=== PATIENT | male | born 1970 | race Caucasian/White ===

== ENCOUNTER 2017-12-24 17:06 | Emergency (ER) | payer MEDICAID ==
[2017-12-24 18:01] LABS: BASOPHILS 1.2 % (0-2); EOSINOPHILS 0.6 % (0-7); HEMATOCRIT 33.4 % (42.0-54.0); HEMOGLOBIN 11.3 g/dL (13.5-17.5); IMMATURE GRANULOCYTES 0.3 % (0-5); LYMPHOCYTES 33.9 % (15-50); MCH 34.3 pg (26.0-34.0); MCHC 33.8 g/dL (31.0-37.0); MCV 101.5 fL (80.0-100.0); MEAN PLATELET VOLUME 9.4 fL (7.4-10.4); MONOCYTES 4.5 % (2-11); NEUTROPHILS 59.5 % (40-80); RBC 3.29 10x6/uL (4.20-6.10); RDW 16.3 % (11.5-14.5); WBC 6.7 10x3/uL (4.8-10.8)
[2017-12-24 18:09] LABS: PLATELET COUNT 300 10x3/uL (130-400)
[2017-12-24 18:15] LABS: ALBUMIN 2.7 g/dL (3.4-5.0); ALKALINE PHOSPHATASE 82 U/L (46-116); ALT (SGPT) 26 U/L (10-68); CALC OSMOLALITY 285 mosm/kg (275-300); CALCIUM 8.5 mg/dL (8.5-10.1); CARBON DIOXIDE 25.8 mmol/L (21.0-32.0); CHLORIDE - SERUM 108 mmol/L (98-107); GLUCOSE 100 mg/dL (74-106); MAGNESIUM - SERUM 1.6 mg/dL (1.8-2.4); POTASSIUM - SERUM 3.8 mmol/L (3.5-5.1); PROTEIN - SERUM 6.7 g/dL (6.4-8.2); SODIUM 145 mmol/L (136-145); UREA NITROGEN 3 mg/dL (7-18); eGFR NON AFRICAN AMERICAN 85 mL/min (90-120)
== END 2017-12-25 01:05 | disposition home or self-care (01) ==
LOC: D.ER 17:06
PROVIDERS: Emergency Medicine
DX: F10.129 Alcohol abuse with intoxication, unspecified (principal); F10.10 Alcohol abuse, uncomplicated; Z85.038 Personal history of other malignant neoplasm of large intestine; F17.200 Nicotine dependence, unspecified, uncomplicated

== ENCOUNTER 2018-01-13 23:54 | Emergency (ER) | payer MEDICAID ==
[2018-01-14 00:32] LABS: BASOPHILS 0.5 % (0-2); EOSINOPHILS 0 % (0-7); HEMATOCRIT 38.2 % (42.0-54.0); HEMOGLOBIN 13.3 g/dL (13.5-17.5); LYMPHOCYTES 45.7 % (15-50); MCH 34.5 pg (26.0-34.0); MCHC 34.8 g/dL (31.0-37.0); MEAN PLATELET VOLUME 9.5 fL (7.4-10.4); MONOCYTES 7.2 % (2-11); NEUTROPHILS 46.6 % (40-80); RBC 3.86 10x6/uL (4.20-6.10); RDW 16.2 % (11.5-14.5); WBC 3.7 10x3/uL (4.8-10.8)
[2018-01-14 00:36] LABS: PLATELET COUNT 54 10x3/uL (130-400)
[2018-01-14 00:41] LABS: INR 1.08 (0.85-1.17); PROTIME 13.6 SECONDS (11.6-15.0)
[2018-01-14 00:43] LABS: ALBUMIN 3.2 g/dL (3.4-5.0); ALKALINE PHOSPHATASE 113 U/L (46-116); ALT (SGPT) 46 U/L (10-68); CALC OSMOLALITY 277 mosm/kg (275-300); CALCIUM 8.3 mg/dL (8.5-10.1); CARBON DIOXIDE 27.7 mmol/L (21.0-32.0); CHLORIDE - SERUM 98 mmol/L (98-107); CREATININE - SERUM 0.6 mg/dL (0.6-1.3); GLUCOSE 100 mg/dL (74-106); MAGNESIUM - SERUM 1.4 mg/dL (1.8-2.4); POTASSIUM - SERUM 4.3 mmol/L (3.5-5.1); PROTEIN - SERUM 7.4 g/dL (6.4-8.2); SODIUM 139 mmol/L (136-145); UREA NITROGEN 13 mg/dL (7-18); eGFR NON AFRICAN AMERICAN > 90 mL/min (90-120)
[2018-01-14 01:00] LABS: PLATELET ESTIMATE DECREASED
== END 2018-01-14 14:04 | disposition home or self-care (01) ==
LOC: D.ER 23:54
PROVIDERS: Family Medicine; Physician Assistant Medical
DX: F10.10 Alcohol abuse, uncomplicated (principal); F10.129 Alcohol abuse with intoxication, unspecified; F41.9 Anxiety disorder, unspecified; F17.200 Nicotine dependence, unspecified, uncomplicated

== ENCOUNTER 2018-01-29 19:27 | Inpatient (IN) | payer MEDICAID ==
[2018-01-29 19:56] LABS: PROTIME 12.8 SECONDS (11.6-15.0)
[2018-01-29 19:57] LABS: HEMATOCRIT 38.1 % (42.0-54.0); HEMOGLOBIN 13.4 g/dL (13.5-17.5); MCH 34.8 pg (26.0-34.0); MCHC 35.2 g/dL (31.0-37.0); MEAN PLATELET VOLUME 9.8 fL (7.4-10.4); RBC 3.85 10x6/uL (4.20-6.10); RDW 15.7 % (11.5-14.5); WBC 5.9 10x3/uL (4.8-10.8)
[2018-01-29 19:58] LABS: D-DIMER-QUANTITATIVE 1.9 ug/mLFEU (0.20-0.54)
[2018-01-29 20:04] LABS: MAGNESIUM - SERUM 1.8 mg/dL (1.8-2.4)
[2018-01-29 20:09] LABS: ALKALINE PHOSPHATASE 95 U/L (46-116); ALT (SGPT) 63 U/L (10-68); BILIRUBIN - TOTAL 0.16 mg/dL (0.2-1.3); CALC OSMOLALITY 277 mosm/kg (275-300); CALCIUM 8.3 mg/dL (8.5-10.1); CARBON DIOXIDE 28.1 mmol/L (21.0-32.0); CHLORIDE - SERUM 104 mmol/L (98-107); CREATININE - SERUM 0.5 mg/dL (0.6-1.3); GLUCOSE 81 mg/dL (74-106); POTASSIUM - SERUM 4.4 mmol/L (3.5-5.1); PROTEIN - SERUM 6.8 g/dL (6.4-8.2); SODIUM 141 mmol/L (136-145); UREA NITROGEN 8 mg/dL (7-18); eGFR NON AFRICAN AMERICAN > 90 mL/min (90-120)
[2018-01-29 20:25] LABS: CKMB 0.3 U/L (0.0-3.6); CREATINE KINASE 36 UL (21-232); PLATELET COUNT 168 10x3/uL (130-400)
[2018-01-29 20:28] LABS: TROPONIN-I < 0.017 ng/mL (0.000-0.060)
[2018-01-29 21:03] LABS: CHOL - HDL RATIO 3.6 ratio (2.3-4.9); LDL-HDL RATIO 2.1 ratio (1.5-3.5)
[2018-01-29 21:11] LABS: EOSINOPHILS 5 % (0-7); LYMPHOCYTES 52 % (15-50); MONOCYTES 7 % (2-11); NEUTROPHILS 36 % (40-80); PLATELET ESTIMATE NORMAL
[2018-01-30 00:58] LABS: CREATINE KINASE 23 UL (21-232)
[2018-01-30 01:00] LABS: CKMB 0.5 U/L (0.0-3.6); TROPONIN-I < 0.017 ng/mL (0.000-0.060)
[2018-01-30 06:15] LABS: BASOPHILS 2.3 % (0-2); EOSINOPHILS 0.5 % (0-7); HEMATOCRIT 35.9 % (42.0-54.0); HEMOGLOBIN 12.5 g/dL (13.5-17.5); IMMATURE GRANULOCYTES 0.3 % (0-5); LYMPHOCYTES 40.7 % (15-50); MCH 34.4 pg (26.0-34.0); MCHC 34.8 g/dL (31.0-37.0); MCV 98.9 fL (80.0-100.0); MEAN PLATELET VOLUME 9.1 fL (7.4-10.4); MONOCYTES 10.3 % (2-11); NEUTROPHILS 45.9 % (40-80); RBC 3.63 10x6/uL (4.20-6.10); RDW 15.8 % (11.5-14.5)
[2018-01-30 06:17] LABS: PLATELET COUNT 132 10x3/uL (130-400)
[2018-01-30 07:08] LABS: ALBUMIN 2.9 g/dL (3.4-5.0); ALKALINE PHOSPHATASE 88 U/L (46-116); ALT (SGPT) 57 U/L (10-68); BILIRUBIN - TOTAL 0.36 mg/dL (0.2-1.3); CALC OSMOLALITY 271 mosm/kg (275-300); CALCIUM 8.2 mg/dL (8.5-10.1); CARBON DIOXIDE 24.1 mmol/L (21.0-32.0); CHLORIDE - SERUM 104 mmol/L (98-107); CREATINE KINASE 29 UL (21-232); CREATININE - SERUM 0.4 mg/dL (0.6-1.3); GLUCOSE 77 mg/dL (74-106); POTASSIUM - SERUM 3.9 mmol/L (3.5-5.1); PROTEIN - SERUM 6.8 g/dL (6.4-8.2); SODIUM 138 mmol/L (136-145); TROPONIN-I < 0.017 ng/mL (0.000-0.060); UREA NITROGEN 5 mg/dL (7-18); eGFR NON AFRICAN AMERICAN > 90 mL/min (90-120)
[2018-01-30 07:32] LABS: CKMB 0.2 U/L (0.0-3.6)
[2018-01-30 12:09] VITALS: BP 140/96; BMI 24.0
[2018-01-30] MEDS ORDERED: PHENERGAN25 M1 PO (12:09)
[2018-01-30 12:47] LABS: CKMB 0.5 U/L (0.0-3.6); CREATINE KINASE 39 UL (21-232)
[2018-01-30 12:50] LABS: TROPONIN-I < 0.017 ng/mL (0.000-0.060)
[2018-01-30 16:22] VITALS: BP 136/89
[2018-01-30 22:13] VITALS: BP 128/89
[2018-01-31 01:16] VITALS: BP 124/81
[2018-01-31 04:40] LABS: BASOPHILS 0.9 % (0-2); EOSINOPHILS 0.3 % (0-7); HEMATOCRIT 34.9 % (42.0-54.0); IMMATURE GRANULOCYTES 0.3 % (0-5); LYMPHOCYTES 35.6 % (15-50); MCH 34.2 pg (26.0-34.0); MCHC 34.4 g/dL (31.0-37.0); MCV 99.4 fL (80.0-100.0); MEAN PLATELET VOLUME 9.3 fL (7.4-10.4); MONOCYTES 10.9 % (2-11); PLATELET COUNT 134 10x3/uL (130-400); RBC 3.51 10x6/uL (4.20-6.10); RDW 15.2 % (11.5-14.5); WBC 3.4 10x3/uL (4.8-10.8)
[2018-01-31 04:47] LABS: CALC OSMOLALITY 265 mosm/kg (275-300); CALCIUM 8.9 mg/dL (8.5-10.1); CARBON DIOXIDE 25.2 mmol/L (21.0-32.0); CHLORIDE - SERUM 101 mmol/L (98-107); CREATININE - SERUM 0.5 mg/dL (0.6-1.3); GLUCOSE 88 mg/dL (74-106); POTASSIUM - SERUM 3.5 mmol/L (3.5-5.1); SODIUM 135 mmol/L (136-145); UREA NITROGEN 5 mg/dL (7-18); eGFR NON AFRICAN AMERICAN > 90 mL/min (90-120)
[2018-01-31 05:14] VITALS: BP 118/90
[2018-01-31 08:19] VITALS: BP 133/92
[2018-01-31] MEDS ORDERED: LIBRIUM25 MG PO (12:03)
[2018-01-31 12:34] VITALS: BP 119/94
== END 2018-01-31 14:37 | disposition home health service (06) | DRG 897 ==
LOC: D.ER 19:27 → D.EDHOLD 23:52 → D.MS 23:52
PROVIDERS: Family Medicine; Internal Medicine Nephrology
DX: F10.129 Alcohol abuse with intoxication, unspecified (principal); Y90.8 Blood alcohol level of 240 mg/100 ml or more; R07.9 Chest pain, unspecified; R19.09 Other intra-abdominal and pelvic swelling, mass and lump

== ENCOUNTER 2018-02-15 03:18 | Emergency (ER) | payer MEDICAID ==
[~2018-02-15 03:18] MED LIST: LIBRIUM25 MG PO; PHENERGAN25 M1 PO
[2018-02-15 04:31] LABS: APPEARANCE CLEAR (CLEAR); BILIRUBIN NEGATIVE (NEGATIVE); COLOR YELLOW (YELLOW); GLUCOSE NEGATIVE (NEGATIVE); KETONE SMALL mg/dL (NEGATIVE); NITRITE NEGATIVE (NEGATIVE); PROTEIN NEGATIVE (NEGATIVE); SPECIFIC GRAVITY 1.015 (1.005-1.020); UROBILINOGEN NORMAL (NORMAL)
[2018-02-15 04:32] LABS: BASOPHILS 0.9 % (0-2); EOSINOPHILS 0.4 % (0-7); HEMATOCRIT 37.2 % (42.0-54.0); HEMOGLOBIN 13.2 g/dL (13.5-17.5); IMMATURE GRANULOCYTES 0.4 % (0-5); LYMPHOCYTES 47.6 % (15-50); MCH 35.6 pg (26.0-34.0); MCHC 35.5 g/dL (31.0-37.0); MCV 100.3 fL (80.0-100.0); MEAN PLATELET VOLUME 8.9 fL (7.4-10.4); MONOCYTES 7.6 % (2-11); NEUTROPHILS 43.1 % (40-80); PLATELET COUNT 101 10x3/uL (130-400); RBC 3.71 10x6/uL (4.20-6.10); RDW 16.2 % (11.5-14.5); WBC 5.4 10x3/uL (4.8-10.8)
[2018-02-15 04:44] LABS: ALBUMIN 3.2 g/dL (3.4-5.0); ALKALINE PHOSPHATASE 139 U/L (46-116); ALT (SGPT) 47 U/L (10-68); BILIRUBIN - TOTAL 0.35 mg/dL (0.2-1.3); CALC OSMOLALITY 273 mosm/kg (275-300); CALCIUM 8.3 mg/dL (8.5-10.1); CARBON DIOXIDE 29.4 mmol/L (21.0-32.0); CHLORIDE - SERUM 100 mmol/L (98-107); CREATININE - SERUM 0.6 mg/dL (0.6-1.3); GLUCOSE 103 mg/dL (74-106); POTASSIUM - SERUM 4.1 mmol/L (3.5-5.1); PROTEIN - SERUM 7.5 g/dL (6.4-8.2); SODIUM 138 mmol/L (136-145); UREA NITROGEN 8 mg/dL (7-18); eGFR NON AFRICAN AMERICAN > 90 mL/min (90-120)
== END 2018-02-15 08:39 | disposition home or self-care (01) ==
LOC: D.ER 03:18
PROVIDERS: Family Medicine
DX: K59.00 Constipation, unspecified (principal); R33.9 Retention of urine, unspecified; F10.10 Alcohol abuse, uncomplicated

== ENCOUNTER 2018-03-17 21:36 | Emergency (ER) | payer MEDICAID ==
[2018-03-17 22:54] LABS: UDS - AMPHET NEGATIVE QUAL (NEGATIVE); UDS - BARB NEGATIVE QUAL (NEGATIVE); UDS - BENZO NEGATIVE QUAL (NEGATIVE); UDS - COCAINE NEGATIVE QUAL (NEGATIVE); UDS - OPIATE NEGATIVE QUAL (NEGATIVE); UDS - PCP NEGATIVE QUAL (NEGATIVE); UDS - THC NEGATIVE QUAL (NEGATIVE)
[2018-03-18 00:02] LABS: HEMOGLOBIN 12.2 g/dL (13.5-17.5); LYMPHOCYTES 37.2 % (15-50); MCH 35.4 pg (26.0-34.0); MCHC 34.9 g/dL (31.0-37.0); MCV 101.4 fL (80.0-100.0); MEAN PLATELET VOLUME 8.9 fL (7.4-10.4); PLATELET COUNT 209 10x3/uL (130-400); RBC 3.45 10x6/uL (4.20-6.10); RDW 16.4 % (11.5-14.5); WBC 4.8 10x3/uL (4.8-10.8)
[2018-03-18 00:10] LABS: ALBUMIN 2.9 g/dL (3.4-5.0); ALKALINE PHOSPHATASE 131 U/L (46-116); ALT (SGPT) 41 U/L (10-68); BILIRUBIN - TOTAL 0.31 mg/dL (0.2-1.3); CALC OSMOLALITY 280 mosm/kg (275-300); CALCIUM 8.1 mg/dL (8.5-10.1); CARBON DIOXIDE 25.2 mmol/L (21.0-32.0); CHLORIDE - SERUM 103 mmol/L (98-107); CREATININE - SERUM 0.5 mg/dL (0.6-1.3); GLUCOSE 98 mg/dL (74-106); MAGNESIUM - SERUM 1.6 mg/dL (1.8-2.4); POTASSIUM - SERUM 4.1 mmol/L (3.5-5.1); PROTEIN - SERUM 7.3 g/dL (6.4-8.2); SODIUM 142 mmol/L (136-145); UREA NITROGEN 8 mg/dL (7-18); eGFR NON AFRICAN AMERICAN > 90 mL/min (90-120)
== END 2018-03-18 05:46 | disposition home or self-care (01) ==
LOC: D.ER 21:36
PROVIDERS: Family Medicine; Physician Assistant Medical
DX: S22.42XA Multiple fractures of ribs, left side, initial encounter for closed fracture (principal); S27.9XXA Injury of unspecified intrathoracic organ, initial encounter; W01.0XXA Fall on same level from slipping, tripping and stumbling without subsequent striking against object, initial encounter; Y93.89 Activity, other specified; Y92.019 Unspecified place in single-family (private) house as the place of occurrence of the external cause; F17.200 Nicotine dependence, unspecified, uncomplicated

== ENCOUNTER 2018-04-06 19:21 | Emergency (ER) | payer MEDICAID | END 2018-04-06 21:08 | disposition home or self-care (01) | LOC: D.ER 19:21 | DX: F10.129 Alcohol abuse with intoxication, unspecified (principal); S80.02XA Contusion of left knee, initial encounter; S20.212A Contusion of left front wall of thorax, initial encounter; W18.31XA Fall on same level due to stepping on an object, initial encounter; Y93.89 Activity, other specified; Y92.019 Unspecified place in single-family (private) house as the place of occurrence of the external cause; F17.200 Nicotine dependence, unspecified, uncomplicated ==

== ENCOUNTER 2018-04-17 17:58 | Emergency (ER) | payer MEDICAID ==
[2018-04-17 18:43] LABS: BASOPHILS 0.4 % (0-2); EOSINOPHILS 0.4 % (0-7); HEMATOCRIT 38.3 % (42.0-54.0); HEMOGLOBIN 13.4 g/dL (13.5-17.5); IMMATURE GRANULOCYTES 0.2 % (0-5); LYMPHOCYTES 35.1 % (15-50); MCH 36.3 pg (26.0-34.0); MCV 103.8 fL (80.0-100.0); MEAN PLATELET VOLUME 9.9 fL (7.4-10.4); MONOCYTES 7.3 % (2-11); NEUTROPHILS 56.6 % (40-80); RBC 3.69 10x6/uL (4.20-6.10); RDW 14.7 % (11.5-14.5); WBC 5.3 10x3/uL (4.8-10.8)
[2018-04-17 18:45] LABS: PLATELET COUNT 102 10x3/uL (130-400)
[2018-04-17 18:55] LABS: ALBUMIN 3.4 g/dL (3.4-5.0); ALKALINE PHOSPHATASE 122 U/L (46-116); ALT (SGPT) 70 U/L (10-68); BILIRUBIN - TOTAL 0.51 mg/dL (0.2-1.3); CALC OSMOLALITY 286 mosm/kg (275-300); CALCIUM 8.5 mg/dL (8.5-10.1); CARBON DIOXIDE 24.6 mmol/L (21.0-32.0); CHLORIDE - SERUM 106 mmol/L (98-107); CREATININE - SERUM 0.5 mg/dL (0.6-1.3); GLUCOSE 92 mg/dL (74-106); PROTEIN - SERUM 7.6 g/dL (6.4-8.2); SODIUM 144 mmol/L (136-145); UREA NITROGEN 13 mg/dL (7-18); eGFR NON AFRICAN AMERICAN > 90 mL/min (90-120)
[2018-04-17 19:18] LABS: APPEARANCE CLEAR (CLEAR); BILIRUBIN NEGATIVE (NEGATIVE); COLOR AMBER (YELLOW); GLUCOSE NEGATIVE (NEGATIVE); KETONE NEGATIVE (NEGATIVE); NITRITE NEGATIVE (NEGATIVE); PROTEIN TRACE mg/dL (NEGATIVE); SPECIFIC GRAVITY 1.015 (1.005-1.020)
[2018-04-17 19:19] LABS: WHITE CELLS - URINE OCC /hpf (0-5)
[2018-04-17 19:20] LABS: BACTERIA FEW /hpf (NONE SEEN); MUCUS <1+ /lpf (NONE SEEN)
[2018-04-17 19:21] LABS: UDS - AMPHET NEGATIVE QUAL (NEGATIVE); UDS - BARB NEGATIVE QUAL (NEGATIVE); UDS - BENZO NEGATIVE QUAL (NEGATIVE); UDS - COCAINE NEGATIVE QUAL (NEGATIVE); UDS - OPIATE NEGATIVE QUAL (NEGATIVE); UDS - PCP NEGATIVE QUAL (NEGATIVE); UDS - THC NEGATIVE QUAL (NEGATIVE)
== END 2018-04-18 01:56 | disposition home or self-care (01) ==
LOC: D.ER 17:58
PROVIDERS: Emergency Medicine
DX: F41.9 Anxiety disorder, unspecified (principal); F10.129 Alcohol abuse with intoxication, unspecified; F17.200 Nicotine dependence, unspecified, uncomplicated

== ENCOUNTER 2018-05-25 19:01 | Emergency (ER) | payer MEDICAID ==
[~2018-05-25] VITALS: Ht 190.5 cm; Wt 87.3 kg
[2018-05-25 19:06] VITALS: Ht 190.5 cm; Wt 87.3 kg
[2018-05-25 19:29] LABS: BASOPHILS 0.4 % (0-2); EOSINOPHILS 0.4 % (0-7); HEMATOCRIT 36.6 % (42.0-54.0); HEMOGLOBIN 12.6 g/dL (13.5-17.5); LYMPHOCYTES 33.3 % (15-50); MCH 35.9 pg (26.0-34.0); MCHC 34.4 g/dL (31.0-37.0); MCV 104.3 fL (80.0-100.0); MEAN PLATELET VOLUME 10.2 fL (7.4-10.4); NEUTROPHILS 58.9 % (40-80); RBC 3.51 10x6/uL (4.20-6.10); RDW 13.6 % (11.5-14.5); WBC 5.2 10x3/uL (4.8-10.8)
[2018-05-25 19:52] LABS: ALKALINE PHOSPHATASE 162 U/L (46-116); ALT (SGPT) 54 U/L (10-68); CALC OSMOLALITY 286 mosm/kg (275-300); CARBON DIOXIDE 25.4 mmol/L (21.0-32.0); CHLORIDE - SERUM 106 mmol/L (98-107); CREATININE - SERUM 0.6 mg/dL (0.6-1.3); GLUCOSE 125 mg/dL (74-106); PROTEIN - SERUM 6.9 g/dL (6.4-8.2); SODIUM 144 mmol/L (136-145); UREA NITROGEN 11 mg/dL (7-18); eGFR NON AFRICAN AMERICAN > 90 mL/min (90-120)
[2018-05-25 20:05] LABS: POTASSIUM - SERUM 2.9 mmol/L (3.5-5.1)
[2018-05-25 20:08] LABS: PLATELET COUNT 66 10x3/uL (130-400)
[2018-05-25 20:32] LABS: PLATELET ESTIMATE DECREASED
[2018-05-25 21:26] LABS: APPEARANCE CLEAR (CLEAR); BILIRUBIN 1+ (NEGATIVE); COLOR DK YELLOW (YELLOW); GLUCOSE NEGATIVE (NEGATIVE); KETONE NEGATIVE (NEGATIVE); NITRITE NEGATIVE (NEGATIVE); PROTEIN NEGATIVE (NEGATIVE)
[2018-05-25 21:27] LABS: WHITE CELLS - URINE 0-5 /hpf (0-5)
[2018-05-25 21:28] LABS: AMORPHOUS SEDIMENT <1+ /lpf (NONE SEEN); BACTERIA FEW /hpf (NONE SEEN); EPITHELIAL CELLS 0-5 /hpf (0-5); MUCUS >1+ /lpf (NONE SEEN)
[2018-05-25 23:03] LABS: UDS - AMPHET NEGATIVE QUAL (NEGATIVE); UDS - BARB NEGATIVE QUAL (NEGATIVE); UDS - BENZO NEGATIVE QUAL (NEGATIVE); UDS - COCAINE NEGATIVE QUAL (NEGATIVE); UDS - OPIATE NEGATIVE QUAL (NEGATIVE); UDS - PCP NEGATIVE QUAL (NEGATIVE); UDS - THC NEGATIVE QUAL (NEGATIVE)
[2018-05-26 06:00] VITALS: BP 136/78
== END 2018-05-26 06:00 | disposition home or self-care (01) ==
LOC: D.ER 19:01
PROVIDERS: Emergency Medicine
DX: F10.10 Alcohol abuse, uncomplicated (principal)

== ENCOUNTER 2018-06-18 10:05 | Emergency (ER) | payer MEDICAID ==
[~2018-06-18] VITALS: Ht 190.5 cm; Wt 81.6 kg
[2018-06-18 10:07] VITALS: Ht 190.5 cm; Wt 81.6 kg
[2018-06-18 12:02] LABS: BASOPHILS 0.2 % (0-2); EOSINOPHILS 0 % (0-7); HEMATOCRIT 32.3 % (42.0-54.0); HEMOGLOBIN 11.4 g/dL (13.5-17.5); LYMPHOCYTES 10.4 % (15-50); MCH 34.9 pg (26.0-34.0); MCHC 35.3 g/dL (31.0-37.0); MCV 98.8 fL (80.0-100.0); MEAN PLATELET VOLUME 10.7 fL (7.4-10.4); NEUTROPHILS 78.4 % (40-80); RBC 3.27 10x6/uL (4.20-6.10); RDW 13.4 % (11.5-14.5); WBC 5.1 10x3/uL (4.8-10.8)
[2018-06-18 12:13] LABS: PLATELET COUNT 49 10x3/uL (130-400)
[2018-06-18 12:26] LABS: ALBUMIN 3.2 g/dL (3.4-5.0); ALKALINE PHOSPHATASE 133 U/L (46-116); ALT (SGPT) 31 U/L (10-68); BILIRUBIN - TOTAL 1.46 mg/dL (0.2-1.3); CALC OSMOLALITY 277 mosm/kg (275-300); CALCIUM 8.1 mg/dL (8.5-10.1); CARBON DIOXIDE 26.9 mmol/L (21.0-32.0); CHLORIDE - SERUM 97 mmol/L (98-107); CREATININE - SERUM 0.6 mg/dL (0.6-1.3); POTASSIUM - SERUM 3.2 mmol/L (3.5-5.1); PROTEIN - SERUM 7.1 g/dL (6.4-8.2); SODIUM 139 mmol/L (136-145); UREA NITROGEN 15 mg/dL (7-18); eGFR NON AFRICAN AMERICAN > 90 mL/min (90-120)
[2018-06-18 12:32] LABS: GLUCOSE 76 mg/dL (74-106)
[2018-06-18 15:01] VITALS: BP 126/78
== END 2018-06-18 15:01 | disposition home or self-care (01) ==
LOC: D.ER 10:05
PROVIDERS: Emergency Medicine
DX: F10.10 Alcohol abuse, uncomplicated (principal); F41.9 Anxiety disorder, unspecified; R11.0 Nausea; F17.200 Nicotine dependence, unspecified, uncomplicated

== ENCOUNTER 2018-07-07 20:42 | Inpatient (IN) | payer MEDICAID ==
[~2018-07-07] VITALS: Ht 190.5 cm; Wt 79.0 kg
[2018-07-07 21:24] LABS: HEMATOCRIT 22.6 % (42.0-54.0); HEMOGLOBIN 7.9 g/dL (13.5-17.5); IMMATURE GRANULOCYTES 0.5 % (0-5); LYMPHOCYTES 33.3 % (15-50); MCH 33.8 pg (26.0-34.0); MCV 96.6 fL (80.0-100.0); MEAN PLATELET VOLUME 8.6 fL (7.4-10.4); MONOCYTES 7.5 % (2-11); NEUTROPHILS 56.7 % (40-80); RBC 2.34 10x6/uL (4.20-6.10)
[2018-07-07 21:25] LABS: PLATELET COUNT 266 10x3/uL (130-400)
[2018-07-07 21:36] LABS: APTT 31.2 SECONDS (22.8-39.4); INR 1.06 (0.85-1.17); PROTIME 13.4 SECONDS (11.6-15.0)
[2018-07-07 21:38] LABS: D-DIMER-QUANTITATIVE 2.5 ug/mLFEU (0.20-0.54)
[2018-07-07 22:03] LABS: ALBUMIN 2.3 g/dL (3.4-5.0); ALKALINE PHOSPHATASE 192 U/L (46-116); ALT (SGPT) 41 U/L (10-68); BILIRUBIN - TOTAL 0.19 mg/dL (0.2-1.3); CALCIUM 7.8 mg/dL (8.5-10.1); CARBON DIOXIDE 28.1 mmol/L (21.0-32.0); CHLORIDE - SERUM 106 mmol/L (98-107); CKMB 0.7 U/L (0.0-3.6); CREATINE KINASE 36 UL (21-232); CREATININE - SERUM 0.7 mg/dL (0.6-1.3); PRO BNP 166 pg/mL (0-125); SODIUM 147 mmol/L (136-145); UREA NITROGEN 9 mg/dL (7-18); eGFR NON AFRICAN AMERICAN > 90 mL/min (90-120)
[2018-07-07 22:08] LABS: CALC OSMOLALITY 294 mosm/kg (275-300); GLUCOSE 163 mg/dL (74-106); TROPONIN-I < 0.017 ng/mL (0.000-0.060)
[2018-07-07 22:09] LABS: POTASSIUM - SERUM 2.5 mmol/L (3.5-5.1)
[2018-07-08] VITALS (25 sets, daily range): BP systolic 100–147; BP diastolic 81–119; BMI 22.0
[2018-07-08 06:19] LABS: BASOPHILS 0.4 % (0-2); EOSINOPHILS 1.1 % (0-7); HEMATOCRIT 23.5 % (42.0-54.0); HEMOGLOBIN 8.2 g/dL (13.5-17.5); IMMATURE GRANULOCYTES 0.4 % (0-5); MCH 32.7 pg (26.0-34.0); MCHC 34.9 g/dL (31.0-37.0); MEAN PLATELET VOLUME 8.5 fL (7.4-10.4); MONOCYTES 7.8 % (2-11); NEUTROPHILS 63.3 % (40-80); PLATELET COUNT 242 10x3/uL (130-400); RBC 2.51 10x6/uL (4.20-6.10); RDW 15.4 % (11.5-14.5); WBC 5.3 10x3/uL (4.8-10.8)
[2018-07-08 06:20] LABS: MCV 93.6 fL (80.0-100.0)
[2018-07-08 06:39] LABS: ALBUMIN 2.4 g/dL (3.4-5.0); ALKALINE PHOSPHATASE 151 U/L (46-116); ALT (SGPT) 47 U/L (10-68); BILIRUBIN - TOTAL 0.36 mg/dL (0.2-1.3); CALC OSMOLALITY 280 mosm/kg (275-300); CARBON DIOXIDE 28.4 mmol/L (21.0-32.0); CHLORIDE - SERUM 103 mmol/L (98-107); GLUCOSE 99 mg/dL (74-106); PROTEIN - SERUM 5.7 g/dL (6.4-8.2); SODIUM 142 mmol/L (136-145); UREA NITROGEN 6 mg/dL (7-18)
[2018-07-08 06:40] LABS: CREATININE - SERUM 0.4 mg/dL (0.6-1.3); POTASSIUM - SERUM 3.1 mmol/L (3.5-5.1); eGFR NON AFRICAN AMERICAN > 90 mL/min (90-120)
[2018-07-08 07:40] LABS: AMYLASE - SERUM 93 U/L (25-115); LIPASE 320 U/L (73-393)
[2018-07-08 12:14] LABS: HEMATOCRIT 27.2 % (42.0-54.0); HEMOGLOBIN 9.6 g/dL (13.5-17.5)
[2018-07-08 18:40] LABS: HEMATOCRIT 27.9 % (42.0-54.0); HEMOGLOBIN 9.8 g/dL (13.5-17.5)
[2018-07-09] VITALS (11 sets, daily range): BP systolic 113–149; BP diastolic 70–113; Ht 190.5 cm; Wt 79.0 kg
[2018-07-09 05:18] LABS: BASOPHILS 0.3 % (0-2); EOSINOPHILS 0.8 % (0-7); HEMATOCRIT 27.3 % (42.0-54.0); HEMOGLOBIN 9.6 g/dL (13.5-17.5); IMMATURE GRANULOCYTES 0.2 % (0-5); LYMPHOCYTES 19.3 % (15-50); MCH 32.8 pg (26.0-34.0); MCHC 35.2 g/dL (31.0-37.0); MCV 93.2 fL (80.0-100.0); MEAN PLATELET VOLUME 8.8 fL (7.4-10.4); MONOCYTES 5.8 % (2-11); NEUTROPHILS 73.6 % (40-80); PLATELET COUNT 213 10x3/uL (130-400); RBC 2.93 10x6/uL (4.20-6.10); RDW 16.6 % (11.5-14.5)
[2018-07-09 05:56] LABS: ALBUMIN 2.5 g/dL (3.4-5.0); ALKALINE PHOSPHATASE 139 U/L (46-116); ALT (SGPT) 40 U/L (10-68); BILIRUBIN - TOTAL 0.65 mg/dL (0.2-1.3); CARBON DIOXIDE 26.6 mmol/L (21.0-32.0); CHLORIDE - SERUM 100 mmol/L (98-107); CREATININE - SERUM 0.5 mg/dL (0.6-1.3); GLUCOSE 91 mg/dL (74-106); POTASSIUM - SERUM 3.7 mmol/L (3.5-5.1); PROTEIN - SERUM 6.1 g/dL (6.4-8.2); SODIUM 135 mmol/L (136-145); eGFR NON AFRICAN AMERICAN > 90 mL/min (90-120)
[2018-07-09 06:00] LABS: CALC OSMOLALITY 266 mosm/kg (275-300); UREA NITROGEN 3 mg/dL (7-18)
[2018-07-09 06:01] LABS: CALCIUM 6.9 mg/dL (8.5-10.1)
== END 2018-07-09 11:33 | disposition left against medical advice (07) | DRG 380 ==
LOC: D.ER 20:42 → D.EDHOLD 07-08 01:49 → D.ICU 07-08 15:31
PROVIDERS: Family Medicine; Family Medicine Adult Medicine; Internal Medicine Gastroenterology
PROC: 0DB78ZX Excision of Stomach, Pylorus, Via Natural or Artificial Opening Endoscopic, Diagnostic (ICD-10-PCS; principal; 2018-07-08 14:00)
DX: K22.11 Ulcer of esophagus with bleeding (principal); J18.9 Pneumonia, unspecified organism; F17.203 Nicotine dependence unspecified, with withdrawal; K86.1 Other chronic pancreatitis; K92.2 Gastrointestinal hemorrhage, unspecified; D50.0 Iron deficiency anemia secondary to blood loss (chronic); K44.9 Diaphragmatic hernia without obstruction or gangrene; I10 Essential (primary) hypertension; J44.9 Chronic obstructive pulmonary disease, unspecified; F10.20 Alcohol dependence, uncomplicated; E87.6 Hypokalemia; Z85.038 Personal history of other malignant neoplasm of large intestine

== ENCOUNTER 2018-07-13 02:30 | Emergency (ER) | payer MEDICAID ==
[~2018-07-13] VITALS: Ht 190.5 cm; Wt 127.3 kg
[2018-07-13 02:37] VITALS: Ht 190.5 cm; Wt 127.3 kg
[2018-07-13 03:11] VITALS: BP 105/79
== END 2018-07-13 03:11 | disposition home or self-care (01) ==
LOC: D.ER 02:30
DX: R60.0 Localized edema (principal); M79.672 Pain in left foot; M79.671 Pain in right foot; G40.909 Epilepsy, unspecified, not intractable, without status epilepticus; I10 Essential (primary) hypertension; J44.9 Chronic obstructive pulmonary disease, unspecified; F17.200 Nicotine dependence, unspecified, uncomplicated

== ENCOUNTER 2018-07-22 01:00 | Emergency (ER) | payer MEDICAID ==
[~2018-07-22] VITALS: Ht 190.5 cm; Wt 79.5 kg
[2018-07-22 01:06] VITALS: Ht 190.5 cm; Wt 79.5 kg
[2018-07-22 02:47] LABS: BASOPHILS 0.2 % (0-2); EOSINOPHILS 0.2 % (0-7); MCH 34.4 pg (26.0-34.0); MCHC 35.5 g/dL (31.0-37.0); MCV 96.9 fL (80.0-100.0); MEAN PLATELET VOLUME 9.3 fL (7.4-10.4); NEUTROPHILS 51.6 % (40-80); RDW 18.7 % (11.5-14.5); WBC 4.1 10x3/uL (4.8-10.8)
[2018-07-22 02:48] LABS: PLATELET COUNT 101 10x3/uL (130-400)
[2018-07-22 03:03] LABS: ALBUMIN 2.9 g/dL (3.4-5.0); ALKALINE PHOSPHATASE 161 U/L (46-116); ALT (SGPT) 64 U/L (10-68); BILIRUBIN - TOTAL 0.59 mg/dL (0.2-1.3); CALC OSMOLALITY 276 mosm/kg (275-300); CALCIUM 7.7 mg/dL (8.5-10.1); CARBON DIOXIDE 27.4 mmol/L (21.0-32.0); CHLORIDE - SERUM 106 mmol/L (98-107); CKMB 0.9 U/L (0.0-3.6); CREATININE - SERUM 0.5 mg/dL (0.6-1.3); GLUCOSE 91 mg/dL (74-106); PROTEIN - SERUM 6.7 g/dL (6.4-8.2); SODIUM 140 mmol/L (136-145); TROPONIN-I < 0.017 ng/mL (0.000-0.060); UREA NITROGEN 6 mg/dL (7-18); eGFR NON AFRICAN AMERICAN > 90 mL/min (90-120)
[2018-07-22 03:10] LABS: POTASSIUM - SERUM 2.7 mmol/L (3.5-5.1)
[2018-07-22 03:22] LABS: INR 1.14 (0.85-1.17)
[2018-07-22 06:16] VITALS: BP 130/97
== END 2018-07-22 06:28 | disposition home or self-care (01) ==
LOC: D.ER 01:00
PROVIDERS: Family Medicine
DX: F10.10 Alcohol abuse, uncomplicated (principal); E87.6 Hypokalemia; G40.909 Epilepsy, unspecified, not intractable, without status epilepticus; I10 Essential (primary) hypertension; J44.9 Chronic obstructive pulmonary disease, unspecified; F17.200 Nicotine dependence, unspecified, uncomplicated

== ENCOUNTER 2018-07-28 05:12 | Emergency (ER) | payer MEDICAID ==
[~2018-07-28] VITALS: Ht 190.5 cm; Wt 68.2 kg
[2018-07-28 05:14] VITALS: Ht 190.5 cm; Wt 68.2 kg
[2018-07-28 07:52] VITALS: BP 134/87
== END 2018-07-28 07:48 | disposition home or self-care (01) ==
LOC: D.ER 05:12
DX: F10.10 Alcohol abuse, uncomplicated (principal); G40.909 Epilepsy, unspecified, not intractable, without status epilepticus; I10 Essential (primary) hypertension; J44.9 Chronic obstructive pulmonary disease, unspecified; F17.200 Nicotine dependence, unspecified, uncomplicated

== ENCOUNTER 2018-08-09 21:59 | Emergency (ER) | payer MEDICAID ==
[~2018-08-09] VITALS: Ht 190.5 cm; Wt 72.6 kg
[2018-08-09 22:02] VITALS: Ht 190.5 cm; Wt 72.6 kg
[2018-08-09 22:25] LABS: BASOPHILS 1.1 % (0-2); EOSINOPHILS 0.2 % (0-7); HEMATOCRIT 35.3 % (42.0-54.0); HEMOGLOBIN 12.7 g/dL (13.5-17.5); IMMATURE GRANULOCYTES 0.2 % (0-5); LYMPHOCYTES 47.4 % (15-50); MCH 35.9 pg (26.0-34.0); MCV 99.7 fL (80.0-100.0); MEAN PLATELET VOLUME 9.6 fL (7.4-10.4); MONOCYTES 9.8 % (2-11); NEUTROPHILS 41.3 % (40-80); RBC 3.54 10x6/uL (4.20-6.10); RDW 16.9 % (11.5-14.5); WBC 4.4 10x3/uL (4.8-10.8)
[2018-08-09 22:26] LABS: PLATELET COUNT 125 10x3/uL (130-400)
[2018-08-09 22:58] LABS: CALC OSMOLALITY 283 mosm/kg (275-300); CALCIUM 8.4 mg/dL (8.5-10.1); CARBON DIOXIDE 30.4 mmol/L (21.0-32.0); CHLORIDE - SERUM 105 mmol/L (98-107); CREATININE - SERUM 0.6 mg/dL (0.6-1.3); GLUCOSE 92 mg/dL (74-106); POTASSIUM - SERUM 3.3 mmol/L (3.5-5.1); SODIUM 143 mmol/L (136-145); THYROID STIMULATING HORMONE 0.78 uIU/mL (0.36-3.74); UREA NITROGEN 9 mg/dL (7-18); eGFR NON AFRICAN AMERICAN > 90 mL/min (90-120)
[2018-08-10 00:29] LABS: APPEARANCE CLEAR (CLEAR); COLOR YELLOW (YELLOW)
[2018-08-10 00:30] LABS: BILIRUBIN NEGATIVE (NEGATIVE); GLUCOSE NEGATIVE (NEGATIVE); KETONE NEGATIVE (NEGATIVE); NITRITE NEGATIVE (NEGATIVE); PROTEIN NEGATIVE (NEGATIVE); UROBILINOGEN NORMAL (NORMAL)
[2018-08-10 00:40] LABS: UDS - AMPHET NEGATIVE QUAL (NEGATIVE); UDS - BARB NEGATIVE QUAL (NEGATIVE); UDS - BENZO POSITIVE QUAL (NEGATIVE); UDS - COCAINE NEGATIVE QUAL (NEGATIVE); UDS - OPIATE NEGATIVE QUAL (NEGATIVE); UDS - PCP NEGATIVE QUAL (NEGATIVE); UDS - THC NEGATIVE QUAL (NEGATIVE)
[2018-08-10 07:03] VITALS: BP 120/78
== END 2018-08-10 07:04 | disposition home or self-care (01) ==
LOC: D.ER 21:59
PROVIDERS: Emergency Medicine
DX: F10.129 Alcohol abuse with intoxication, unspecified (principal); F13.10 Sedative, hypnotic or anxiolytic abuse, uncomplicated; G40.909 Epilepsy, unspecified, not intractable, without status epilepticus; I10 Essential (primary) hypertension; J44.9 Chronic obstructive pulmonary disease, unspecified; F17.200 Nicotine dependence, unspecified, uncomplicated

== ENCOUNTER 2018-08-15 03:19 | Observation (INO) | payer MEDICAID ==
[2018-08-15] VITALS (8 sets, daily range): BP systolic 114–141; BP diastolic 93–105; BMI 21.2
[~2018-08-15] VITALS: Ht 190.5 cm; Wt 76.7 kg
[2018-08-15 04:23] LABS: EOSINOPHILS 0.3 % (0-7); HEMATOCRIT 38.6 % (42.0-54.0); HEMOGLOBIN 13.8 g/dL (13.5-17.5); LYMPHOCYTES 53.6 % (15-50); MCH 35.6 pg (26.0-34.0); MCHC 35.8 g/dL (31.0-37.0); MCV 99.5 fL (80.0-100.0); MONOCYTES 8.6 % (2-11); NEUTROPHILS 36.5 % (40-80); RBC 3.88 10x6/uL (4.20-6.10); RDW 15.8 % (11.5-14.5); WBC 3.8 10x3/uL (4.8-10.8)
[2018-08-15 04:24] LABS: PLATELET COUNT 78 10x3/uL (130-400)
[2018-08-15 04:39] LABS: ALKALINE PHOSPHATASE 120 U/L (46-116); ALT (SGPT) 46 U/L (10-68); AMYLASE - SERUM 58 U/L (25-115); BILIRUBIN - DIRECT 0.35 mg/dL (0.00-0.30); BILIRUBIN - INDIRECT 0.27 mg/dL (0.00-1.00); BILIRUBIN - TOTAL 0.62 mg/dL (0.2-1.3); CALC OSMOLALITY 284 mosm/kg (275-300); CALCIUM 8.1 mg/dL (8.5-10.1); CARBON DIOXIDE 27.3 mmol/L (21.0-32.0); CHLORIDE - SERUM 103 mmol/L (98-107); CREATININE - SERUM 0.6 mg/dL (0.6-1.3); GLUCOSE 97 mg/dL (74-106); LIPASE 146 U/L (73-393); MAGNESIUM - SERUM 1.6 mg/dL (1.8-2.4); POTASSIUM - SERUM 2.8 mmol/L (3.5-5.1); PROTEIN - SERUM 7.2 g/dL (6.4-8.2); SODIUM 144 mmol/L (136-145); UREA NITROGEN 8 mg/dL (7-18); eGFR NON AFRICAN AMERICAN > 90 mL/min (90-120)
[2018-08-15 13:35] LABS: UDS - AMPHET NEGATIVE QUAL (NEGATIVE); UDS - BARB NEGATIVE QUAL (NEGATIVE); UDS - BENZO NEGATIVE QUAL (NEGATIVE); UDS - COCAINE NEGATIVE QUAL (NEGATIVE); UDS - OPIATE NEGATIVE QUAL (NEGATIVE); UDS - PCP NEGATIVE QUAL (NEGATIVE); UDS - THC NEGATIVE QUAL (NEGATIVE)
[2018-08-15 13:55] LABS: APPEARANCE CLEAR (CLEAR); BILIRUBIN NEGATIVE (NEGATIVE); COLOR DK YELLOW (YELLOW); GLUCOSE NEGATIVE (NEGATIVE); KETONE NEGATIVE (NEGATIVE); NITRITE NEGATIVE (NEGATIVE); PROTEIN NEGATIVE (NEGATIVE); SPECIFIC GRAVITY 1.015 (1.005-1.020); UROBILINOGEN NORMAL (NORMAL)
[2018-08-16 04:00] VITALS: BP 137/94
[2018-08-16 06:53] LABS: BASOPHILS 0.5 % (0-2); EOSINOPHILS 0.3 % (0-7); HEMATOCRIT 38.1 % (42.0-54.0); HEMOGLOBIN 13.4 g/dL (13.5-17.5); IMMATURE GRANULOCYTES 0.3 % (0-5); LYMPHOCYTES 37.1 % (15-50); MCH 35.4 pg (26.0-34.0); MCHC 35.2 g/dL (31.0-37.0); MCV 100.8 fL (80.0-100.0); MEAN PLATELET VOLUME 9.7 fL (7.4-10.4); MONOCYTES 8.6 % (2-11); NEUTROPHILS 53.2 % (40-80); PLATELET COUNT 77 10x3/uL (130-400); RBC 3.78 10x6/uL (4.20-6.10); RDW 15.7 % (11.5-14.5); WBC 3.8 10x3/uL (4.8-10.8)
[2018-08-16 07:03] LABS: ALBUMIN 3.5 g/dL (3.4-5.0); ALKALINE PHOSPHATASE 127 U/L (46-116); ALT (SGPT) 44 U/L (10-68); BILIRUBIN - TOTAL 1.81 mg/dL (0.2-1.3); CALCIUM 8.5 mg/dL (8.5-10.1); CARBON DIOXIDE 26.9 mmol/L (21.0-32.0); CHLORIDE - SERUM 98 mmol/L (98-107); CREATININE - SERUM 0.6 mg/dL (0.6-1.3); GLUCOSE 92 mg/dL (74-106); MAGNESIUM - SERUM 1.8 mg/dL (1.8-2.4); PROTEIN - SERUM 7.8 g/dL (6.4-8.2); SODIUM 137 mmol/L (136-145); eGFR NON AFRICAN AMERICAN > 90 mL/min (90-120)
[2018-08-16 07:04] LABS: CALC OSMOLALITY 270 mosm/kg (275-300); UREA NITROGEN 4 mg/dL (7-18)
[2018-08-16 07:06] LABS: POTASSIUM - SERUM 2.9 mmol/L (3.5-5.1)
[2018-08-16 09:28] VITALS: BP 141/102
[2018-08-16 10:38] VITALS: Ht 190.5 cm; Wt 76.7 kg
[2018-08-16 11:07] LABS: APTT 32.2 SECONDS (22.8-39.4); INR 1.14 (0.85-1.17); PROTIME 14.2 SECONDS (11.6-15.0)
[2018-08-16 12:58] VITALS: BP 135/88
[2018-08-16 20:00] VITALS: BP 129/96
[2018-08-17 04:00] VITALS: BP 125/101
[2018-08-17 06:44] LABS: BASOPHILS 0.8 % (0-2); EOSINOPHILS 0.5 % (0-7); HEMATOCRIT 36.7 % (42.0-54.0); HEMOGLOBIN 13.1 g/dL (13.5-17.5); LYMPHOCYTES 36.3 % (15-50); MCH 36.2 pg (26.0-34.0); MCHC 35.7 g/dL (31.0-37.0); MCV 101.4 fL (80.0-100.0); MEAN PLATELET VOLUME 10.3 fL (7.4-10.4); MONOCYTES 8.5 % (2-11); NEUTROPHILS 53.9 % (40-80); PLATELET COUNT 68 10x3/uL (130-400); RBC 3.62 10x6/uL (4.20-6.10); RDW 14.8 % (11.5-14.5); WBC 3.6 10x3/uL (4.8-10.8)
[2018-08-17 07:14] LABS: ALBUMIN 3.3 g/dL (3.4-5.0); ALKALINE PHOSPHATASE 121 U/L (46-116); ALT (SGPT) 45 U/L (10-68); BILIRUBIN - TOTAL 1.99 mg/dL (0.2-1.3); CALC OSMOLALITY 262 mosm/kg (275-300); CALCIUM 8.4 mg/dL (8.5-10.1); CARBON DIOXIDE 22.8 mmol/L (21.0-32.0); CHLORIDE - SERUM 99 mmol/L (98-107); CREATININE - SERUM 0.7 mg/dL (0.6-1.3); GLUCOSE 91 mg/dL (74-106); POTASSIUM - SERUM 3.4 mmol/L (3.5-5.1); PROTEIN - SERUM 7.1 g/dL (6.4-8.2); SODIUM 133 mmol/L (136-145); UREA NITROGEN 5 mg/dL (7-18); eGFR NON AFRICAN AMERICAN > 90 mL/min (90-120)
== END 2018-08-17 08:13 | disposition left against medical advice (07) ==
LOC: D.ER 03:19 → D.M2 05:16 → OBSVTIME 05:16 → D.M2 05:16
PROVIDERS: Emergency Medicine; Internal Medicine Nephrology
DX: K86.3 Pseudocyst of pancreas (principal); F10.10 Alcohol abuse, uncomplicated; F17.213 Nicotine dependence, cigarettes, with withdrawal; D61.818 Other pancytopenia; J44.9 Chronic obstructive pulmonary disease, unspecified; E83.42 Hypomagnesemia; E87.6 Hypokalemia; Z85.038 Personal history of other malignant neoplasm of large intestine

== ENCOUNTER 2018-09-04 17:41 | Emergency (ER) | payer MEDICAID ==
[~2018-09-04] VITALS: Ht 190.5 cm; Wt 72.7 kg
[2018-09-04 17:50] VITALS: Ht 190.5 cm; Wt 72.7 kg
[2018-09-04 18:07] LABS: BASOPHILS 1.7 % (0-2); EOSINOPHILS 0.6 % (0-7); HEMATOCRIT 36.4 % (42.0-54.0); HEMOGLOBIN 12.9 g/dL (13.5-17.5); IMMATURE GRANULOCYTES 0.2 % (0-5); LYMPHOCYTES 45.6 % (15-50); MCH 36.2 pg (26.0-34.0); MCHC 35.4 g/dL (31.0-37.0); MCV 102.2 fL (80.0-100.0); MONOCYTES 9.2 % (2-11); NEUTROPHILS 42.7 % (40-80); RBC 3.56 10x6/uL (4.20-6.10); RDW 12.5 % (11.5-14.5); WBC 4.7 10x3/uL (4.8-10.8)
[2018-09-04 18:15] LABS: PLATELET COUNT 183 10x3/uL (130-400)
[2018-09-04 18:36] LABS: ALBUMIN 2.6 g/dL (3.4-5.0); ALKALINE PHOSPHATASE 100 U/L (46-116); ALT (SGPT) 61 U/L (10-68); BILIRUBIN - TOTAL 0.22 mg/dL (0.2-1.3); CALC OSMOLALITY 284 mosm/kg (275-300); CARBON DIOXIDE 25.5 mmol/L (21.0-32.0); CHLORIDE - SERUM 108 mmol/L (98-107); CREATININE - SERUM 0.5 mg/dL (0.6-1.3); GLUCOSE 99 mg/dL (74-106); POTASSIUM - SERUM 3.1 mmol/L (3.5-5.1); SODIUM 144 mmol/L (136-145); UREA NITROGEN 7 mg/dL (7-18); eGFR NON AFRICAN AMERICAN > 90 mL/min (90-120)
[2018-09-04 18:48] LABS: CKMB 0.2 U/L (0.0-3.6); CREATINE KINASE 16 UL (21-232)
[2018-09-04 18:52] LABS: TROPONIN-I < 0.017 ng/mL (0.000-0.060)
[2018-09-04 19:34] LABS: APTT 29.8 SECONDS (22.8-39.4); INR 1.05 (0.85-1.17); PROTIME 13.3 SECONDS (11.6-15.0)
[2018-09-04 22:52] LABS: TROPONIN-I < 0.017 ng/mL (0.000-0.060)
[2018-09-04 23:17] VITALS: BP 122/85
== END 2018-09-04 23:18 | disposition home or self-care (01) ==
LOC: D.ER 17:41
PROVIDERS: Family Medicine
DX: R07.9 Chest pain, unspecified (principal); F10.10 Alcohol abuse, uncomplicated; Z87.19 Personal history of other diseases of the digestive system; E87.6 Hypokalemia; R00.0 Tachycardia, unspecified; F17.200 Nicotine dependence, unspecified, uncomplicated

== ENCOUNTER 2018-09-18 17:40 | Emergency (ER) | payer MEDICAID ==
[~2018-09-18] VITALS: Ht 190.5 cm; Wt 81.8 kg
[2018-09-18 17:50] VITALS: Ht 190.5 cm; Wt 81.8 kg
[2018-09-18 18:31] LABS: BASOPHILS 0.5 % (0-2); EOSINOPHILS 0 % (0-7); HEMATOCRIT 40.8 % (42.0-54.0); HEMOGLOBIN 14.6 g/dL (13.5-17.5); LYMPHOCYTES 28.9 % (15-50); MCH 36.1 pg (26.0-34.0); MCHC 35.8 g/dL (31.0-37.0); MEAN PLATELET VOLUME 10.5 fL (7.4-10.4); MONOCYTES 6.6 % (2-11); RBC 4.04 10x6/uL (4.20-6.10); RDW 12.9 % (11.5-14.5); WBC 3.9 10x3/uL (4.8-10.8)
[2018-09-18 18:34] LABS: PLATELET COUNT 79 10x3/uL (130-400)
[2018-09-18 18:50] LABS: ALBUMIN 3.3 g/dL (3.4-5.0); ALKALINE PHOSPHATASE 130 U/L (46-116); ALT (SGPT) 75 U/L (10-68); BILIRUBIN - TOTAL 0.68 mg/dL (0.2-1.3); CALC OSMOLALITY 283 mosm/kg (275-300); CALCIUM 8.5 mg/dL (8.5-10.1); CARBON DIOXIDE 24.6 mmol/L (21.0-32.0); CHLORIDE - SERUM 102 mmol/L (98-107); CREATININE - SERUM 1.1 mg/dL (0.6-1.3); GLUCOSE 141 mg/dL (74-106); MAGNESIUM - SERUM 1.2 mg/dL (1.8-2.4); POTASSIUM - SERUM 4.1 mmol/L (3.5-5.1); PROTEIN - SERUM 7.6 g/dL (6.4-8.2); SODIUM 141 mmol/L (136-145); UREA NITROGEN 15 mg/dL (7-18); eGFR NON AFRICAN AMERICAN 75 mL/min (90-120)
[2018-09-18 23:37] VITALS: BP 102/72
== END 2018-09-18 23:38 | disposition home or self-care (01) ==
LOC: D.ER 17:40
PROVIDERS: Family Medicine
DX: F10.10 Alcohol abuse, uncomplicated (principal); F17.200 Nicotine dependence, unspecified, uncomplicated

== ENCOUNTER 2018-11-14 02:49 | Emergency (ER) | payer MEDICAID ==
[~2018-11-14] VITALS: Ht 190.5 cm; Wt 77.3 kg
[2018-11-14 02:55] VITALS: Ht 190.5 cm; Wt 77.3 kg
[2018-11-14 03:26] LABS: BASOPHILS 0.3 % (0-2); EOSINOPHILS 0.9 % (0-7); HEMATOCRIT 35.6 % (42.0-54.0); HEMOGLOBIN 12.7 g/dL (13.5-17.5); IMMATURE GRANULOCYTES 0.1 % (0-5); LYMPHOCYTES 28.8 % (15-50); MCH 33.6 pg (26.0-34.0); MCHC 35.7 g/dL (31.0-37.0); MCV 94.2 fL (80.0-100.0); MEAN PLATELET VOLUME 10.2 fL (7.4-10.4); MONOCYTES 6.2 % (2-11); NEUTROPHILS 63.7 % (40-80); RBC 3.78 10x6/uL (4.20-6.10); RDW 13.3 % (11.5-14.5); WBC 6.8 10x3/uL (4.8-10.8)
[2018-11-14 03:29] LABS: PLATELET COUNT 58 10x3/uL (130-400)
[2018-11-14 03:31] LABS: APPEARANCE HAZY (CLEAR); COLOR DK YELLOW (YELLOW); GLUCOSE NEGATIVE (NEGATIVE); KETONE LARGE mg/dL (NEGATIVE); NITRITE NEGATIVE (NEGATIVE); PROTEIN NEGATIVE (NEGATIVE); SPECIFIC GRAVITY 1.015 (1.005-1.020)
[2018-11-14 03:32] LABS: BACTERIA NONE SEEN /hpf (NONE SEEN); BILIRUBIN 3+ (NEGATIVE); EPITHELIAL CELLS 0-5 /hpf (0-5); GRANULAR CAST 0-5 /lpf (NONE SEEN); HYALINE CAST 0-5 /lpf (NONE SEEN); MUCUS >1+ /lpf (NONE SEEN); RED CELLS - URINE NONE SEEN /hpf (0-5); WHITE CELLS - URINE 0-5 /hpf (0-5)
[2018-11-14 03:41] LABS: ALBUMIN 3.3 g/dL (3.4-5.0); ALKALINE PHOSPHATASE 92 U/L (46-116); ALT (SGPT) 23 U/L (10-68); AMYLASE - SERUM 49 U/L (25-115); BILIRUBIN - TOTAL 1.81 mg/dL (0.2-1.3); CALC OSMOLALITY 267 mosm/kg (275-300); CARBON DIOXIDE 21.6 mmol/L (21.0-32.0); CHLORIDE - SERUM 93 mmol/L (98-107); CREATININE - SERUM 0.9 mg/dL (0.6-1.3); LIPASE 127 U/L (73-393); POTASSIUM - SERUM 3.2 mmol/L (3.5-5.1); PROTEIN - SERUM 7.5 g/dL (6.4-8.2); SODIUM 134 mmol/L (136-145); UREA NITROGEN 17 mg/dL (7-18); eGFR NON AFRICAN AMERICAN > 90 mL/min (90-120)
[2018-11-14 03:42] LABS: GLUCOSE 66 mg/dL (74-106)
[2018-11-14 06:19] VITALS: BP 128/87
== END 2018-11-14 06:20 | disposition home or self-care (01) ==
LOC: D.ER 02:49
PROVIDERS: Family Medicine
DX: E86.0 Dehydration (principal); E87.6 Hypokalemia; D69.6 Thrombocytopenia, unspecified; F17.200 Nicotine dependence, unspecified, uncomplicated; Z85.038 Personal history of other malignant neoplasm of large intestine; Z85.048 Personal history of other malignant neoplasm of rectum, rectosigmoid junction, and anus

== ENCOUNTER 2018-12-06 08:20 | Emergency (ER) | payer MEDICAID ==
[~2018-12-06] VITALS: Ht 190.5 cm; Wt 77.3 kg
[2018-12-06 08:21] VITALS: BP 123/92; Ht 190.5 cm; Wt 77.3 kg
[2018-12-06 08:56] LABS: BASOPHILS 0.9 % (0-2); EOSINOPHILS 0.1 % (0-7); HEMATOCRIT 36.9 % (42.0-54.0); IMMATURE GRANULOCYTES 0.1 % (0-5); MCH 33.3 pg (26.0-34.0); MCHC 35.2 g/dL (31.0-37.0); MCV 94.6 fL (80.0-100.0); MEAN PLATELET VOLUME 8.8 fL (7.4-10.4); MONOCYTES 3.7 % (2-11); NEUTROPHILS 67.2 % (40-80); PLATELET COUNT 146 10x3/uL (130-400); RDW 14.5 % (11.5-14.5); WBC 6.7 10x3/uL (4.8-10.8)
[2018-12-06 09:20] LABS: ALBUMIN 3.1 g/dL (3.4-5.0); ALKALINE PHOSPHATASE 74 U/L (46-116); ALT (SGPT) 33 U/L (10-68); BILIRUBIN - TOTAL 0.36 mg/dL (0.2-1.3); CALC OSMOLALITY 280 mosm/kg (275-300); CALCIUM 8.5 mg/dL (8.5-10.1); CARBON DIOXIDE 28.1 mmol/L (21.0-32.0); CHLORIDE - SERUM 101 mmol/L (98-107); CREATININE - SERUM 0.7 mg/dL (0.6-1.3); POTASSIUM - SERUM 3.5 mmol/L (3.5-5.1); PROTEIN - SERUM 7.2 g/dL (6.4-8.2); SODIUM 141 mmol/L (136-145); UREA NITROGEN 10 mg/dL (7-18); eGFR NON AFRICAN AMERICAN > 90 mL/min (90-120)
[2018-12-06 09:21] LABS: GLUCOSE 112 mg/dL (74-106)
[2018-12-06 09:38] LABS: CREATINE KINASE 228 UL (21-232); LIPASE 287 U/L (73-393); MAGNESIUM - SERUM 1.6 mg/dL (1.8-2.4); PRO BNP 75 pg/mL (0-125); TROPONIN-I < 0.017 ng/mL (0.000-0.060)
[2018-12-06 13:13] LABS: BASOPHILS 0.5 % (0-2); EOSINOPHILS 0 % (0-7); HEMATOCRIT 34.1 % (42.0-54.0); IMMATURE GRANULOCYTES 0.2 % (0-5); LYMPHOCYTES 32.7 % (15-50); MCH 33.3 pg (26.0-34.0); MCHC 35.2 g/dL (31.0-37.0); MCV 94.7 fL (80.0-100.0); MEAN PLATELET VOLUME 8.9 fL (7.4-10.4); MONOCYTES 4.8 % (2-11); NEUTROPHILS 61.8 % (40-80); PLATELET COUNT 131 10x3/uL (130-400); RDW 14.4 % (11.5-14.5)
[2018-12-06 13:29] LABS: ALBUMIN 2.9 g/dL (3.4-5.0); ALKALINE PHOSPHATASE 76 U/L (46-116); ALT (SGPT) 31 U/L (10-68); BILIRUBIN - TOTAL 0.32 mg/dL (0.2-1.3); CALC OSMOLALITY 279 mosm/kg (275-300); CALCIUM 7.9 mg/dL (8.5-10.1); CARBON DIOXIDE 26.2 mmol/L (21.0-32.0); CHLORIDE - SERUM 102 mmol/L (98-107); CREATININE - SERUM 0.7 mg/dL (0.6-1.3); GLUCOSE 90 mg/dL (74-106); POTASSIUM - SERUM 3.3 mmol/L (3.5-5.1); PROTEIN - SERUM 6.7 g/dL (6.4-8.2); SODIUM 141 mmol/L (136-145); UREA NITROGEN 10 mg/dL (7-18); eGFR NON AFRICAN AMERICAN > 90 mL/min (90-120)
[2018-12-06 13:36] LABS: ACETAMINOPHEN 1.5 ug/mL (10.0-30.0); CKMB 1.9 U/L (0.0-3.6); CREATINE KINASE 207 UL (21-232); MAGNESIUM - SERUM 1.9 mg/dL (1.8-2.4); PRO BNP 91 pg/mL (0-125); TROPONIN-I < 0.017 ng/mL (0.000-0.060)
== END 2018-12-06 19:16 | disposition home or self-care (01) ==
LOC: D.ER 08:20
PROVIDERS: Family Medicine
DX: F10.129 Alcohol abuse with intoxication, unspecified (principal); R07.89 Other chest pain; R44.1 Visual hallucinations; Z85.038 Personal history of other malignant neoplasm of large intestine; Z85.048 Personal history of other malignant neoplasm of rectum, rectosigmoid junction, and anus

== ENCOUNTER 2019-10-11 15:28 | Emergency (ER) | payer MEDICAID ==
[~2019-10-11] VITALS: Ht 190.5 cm; Wt 95.5 kg
[2019-10-11 15:33] VITALS: Ht 190.5 cm; Wt 95.5 kg
[2019-10-11 17:16] VITALS: BP 124/78
== END 2019-10-11 17:17 | disposition home or self-care (01) ==
LOC: D.ER 15:28
DX: F10.129 Alcohol abuse with intoxication, unspecified (principal); R07.9 Chest pain, unspecified

== ENCOUNTER 2019-10-13 19:09 | Emergency (ER) | payer MEDICAID ==
[~2019-10-13] VITALS: Ht 190.5 cm; Wt 90.9 kg
[2019-10-13 19:26] VITALS: Ht 190.5 cm; Wt 90.9 kg
[2019-10-13 19:54] LABS: BASOPHILS 0.7 % (0-2); EOSINOPHILS 0.4 % (0-7); HEMATOCRIT 39.5 % (42.0-54.0); HEMOGLOBIN 13.9 g/dL (13.5-17.5); LYMPHOCYTES 44.6 % (15-50); MCH 32.9 pg (26.0-34.0); MCHC 35.2 g/dL (31.0-37.0); MCV 93.6 fL (80.0-100.0); MEAN PLATELET VOLUME 8.9 fL (7.4-10.4); MONOCYTES 6.3 % (2-11); RBC 4.22 10x6/uL (4.20-6.10); RDW 15.5 % (11.5-14.5); WBC 5.4 10x3/uL (4.8-10.8)
[2019-10-13 20:02] LABS: PLATELET COUNT 164 10x3/uL (130-400)
[2019-10-13 20:15] LABS: CALC OSMOLALITY 287 mosm/kg (275-300); CARBON DIOXIDE 32.8 mmol/L (21.0-32.0); CHLORIDE - SERUM 103 mmol/L (98-107); CREATININE - SERUM 0.6 mg/dL (0.6-1.3); GLUCOSE 97 mg/dL (74-106); POTASSIUM - SERUM 3.3 mmol/L (3.5-5.1); SODIUM 144 mmol/L (136-145); UREA NITROGEN 15 mg/dL (7-18); eGFR NON AFRICAN AMERICAN > 90 mL/min (90-120)
[2019-10-13 20:22] LABS: ALBUMIN 3.4 g/dL (3.4-5.0); ALKALINE PHOSPHATASE 107 U/L (46-116); ALT (SGPT) 35 U/L (10-68); BILIRUBIN - TOTAL 0.32 mg/dL (0.2-1.3); PROTEIN - SERUM 7.2 g/dL (6.4-8.2)
[2019-10-14 04:25] LABS: UDS - AMPHET NEGATIVE QUAL (NEGATIVE); UDS - BARB NEGATIVE QUAL (NEGATIVE); UDS - BENZO NEGATIVE QUAL (NEGATIVE); UDS - COCAINE NEGATIVE QUAL (NEGATIVE); UDS - OPIATE NEGATIVE QUAL (NEGATIVE); UDS - PCP NEGATIVE QUAL (NEGATIVE); UDS - THC NEGATIVE QUAL (NEGATIVE)
[2019-10-14 04:43] LABS: APPEARANCE CLEAR (CLEAR); BILIRUBIN NEGATIVE (NEGATIVE); COLOR DK YELLOW (YELLOW); GLUCOSE NEGATIVE (NEGATIVE); KETONE NEGATIVE (NEGATIVE); NITRITE NEGATIVE (NEGATIVE); PROTEIN 1+ mg/dL (NEGATIVE); SPECIFIC GRAVITY 1.025 (1.005-1.020); UROBILINOGEN NORMAL (NORMAL)
[2019-10-14 04:47] LABS: BACTERIA FEW /hpf (NEGATIVE); EPITHELIAL CELLS 0-5 /hpf (0-5); MUCUS <1+ /lpf (NONE SEEN); RED CELLS - URINE 0-5 /hpf (0-5); WHITE CELLS - URINE 0-5 /hpf (NEGATIVE)
--- NOTE | 2019-10-14 07:51 | NUR ---
DR. HURT NOTIFIED AND REVIEWED PT'S BEHAVIOR AND ASSESSMENT RESULTS. PT IS A LOW RISK PER DR. HURT. DR. HURT STATED TO [facility] RESOURCES TO PT AT TIME OF DISCHARGE. NO FURTHER ORDERS AT THIS TIME. RESOURCES REVIEWED WITH PT AND HE VERBALIZED UNDERSTANDING.
[2019-10-14 08:37] VITALS: BP 136/85
== END 2019-10-14 08:38 | disposition home or self-care (01) ==
LOC: D.ER 19:09
PROVIDERS: Family Medicine
DX: R45.851 Suicidal ideations (principal); F10.129 Alcohol abuse with intoxication, unspecified; Y90.8 Blood alcohol level of 240 mg/100 ml or more

== ENCOUNTER 2020-07-13 16:11 | Emergency (ER) | payer MEDICAID ==
[~2020-07-13] VITALS: Ht 190.5 cm; Wt 79.5 kg
[2020-07-13 16:13] VITALS: Ht 190.5 cm; Wt 79.5 kg
[2020-07-13 17:23] LABS: BASOPHILS 0.4 % (0-2); EOSINOPHILS 0 % (0-7); HEMATOCRIT 33.5 % (42.0-54.0); HEMOGLOBIN 11.6 g/dL (13.5-17.5); IMMATURE GRANULOCYTES 0.2 % (0-5); LYMPHOCYTES 18.1 % (15-50); MCH 34.3 pg (26.0-34.0); MCHC 34.6 g/dL (31.0-37.0); MCV 99.1 fL (80.0-100.0); MEAN PLATELET VOLUME 10.3 fL (7.4-10.4); MONOCYTES 9.5 % (2-11); NEUTROPHILS 71.8 % (40-80); RBC 3.38 10x6/uL (4.20-6.10); RDW 15.2 % (11.5-14.5); WBC 4.9 10x3/uL (4.8-10.8)
[2020-07-13 17:27] LABS: PLATELET COUNT 51 10x3/uL (130-400)
[2020-07-13 17:44] LABS: CALC OSMOLALITY 264 mosm/kg (275-300); CALCIUM 7.8 mg/dL (8.5-10.1); CARBON DIOXIDE 25.6 mmol/L (21.0-32.0); CHLORIDE - SERUM 97 mmol/L (98-107); GLUCOSE 94 mg/dL (74-106); POTASSIUM - SERUM 3.8 mmol/L (3.5-5.1); SODIUM 132 mmol/L (136-145); UREA NITROGEN 13 mg/dL (7-18); eGFR NON AFRICAN AMERICAN 84 mL/min (90-120)
[2020-07-13 17:53] LABS: ALBUMIN 2.9 g/dL (3.4-5.0); ALKALINE PHOSPHATASE 161 U/L (30-120); ALT (SGPT) 26 U/L (10-68); AMYLASE - SERUM 96 U/L (25-115); BILIRUBIN - TOTAL 0.98 mg/dL (0.2-1.3); LIPASE 173 U/L (73-393); PROTEIN - SERUM 6.5 g/dL (6.4-8.2)
[2020-07-13 17:54] LABS: TROPONIN-I < 0.017 ng/mL (0.000-0.060)
[2020-07-13 18:24] LABS: PLATELET ESTIMATE DECREASED
[2020-07-13 18:51] LABS: BILIRUBIN 2+ (NEGATIVE); GLUCOSE NEGATIVE (NEGATIVE); KETONE NEGATIVE (NEGATIVE); NITRITE NEGATIVE (NEGATIVE); UROBILINOGEN NORMAL (NORMAL); WHITE CELLS - URINE 0-5 /hpf (NEGATIVE)
[2020-07-13 18:52] LABS: BACTERIA FEW /hpf (NEGATIVE); RED CELLS - URINE 0-5 /hpf (0-5)
[2020-07-13] MEDS ORDERED: ZOFRAN ODT4 MG/UDTAB PO (19:05)
[2020-07-13 19:27] VITALS: BP 122/82
== END 2020-07-13 19:27 | disposition home or self-care (01) ==
LOC: D.ER 16:11
PROVIDERS: Family Medicine
DX: K86.1 Other chronic pancreatitis (principal); R10.9 Unspecified abdominal pain

== ENCOUNTER 2020-07-14 20:36 | Emergency (ER) | payer MEDICAID ==
[~2020-07-14] VITALS: Ht 190.5 cm; Wt 68.0 kg
[~2020-07-14 20:36] MED LIST changes: +ZOFRAN ODT4 MG/UDTAB PO
[2020-07-14 20:47] VITALS: Ht 190.5 cm; Wt 68.0 kg
[2020-07-14 21:23] LABS: BASOPHILS 0.3 % (0-2); HEMATOCRIT 30.2 % (42.0-54.0); HEMOGLOBIN 10.5 g/dL (13.5-17.5); IMMATURE GRANULOCYTES 0.1 % (0-5); LYMPHOCYTES 35.3 % (15-50); MCH 34.5 pg (26.0-34.0); MCHC 34.8 g/dL (31.0-37.0); MCV 99.3 fL (80.0-100.0); MEAN PLATELET VOLUME 10.2 fL (7.4-10.4); MONOCYTES 7.9 % (2-11); NEUTROPHILS 55.4 % (40-80); PLATELET COUNT 61 10x3/uL (130-400); RBC 3.04 10x6/uL (4.20-6.10); RDW 15.2 % (11.5-14.5)
[2020-07-14 21:25] LABS: WBC 6.7 10x3/uL (4.8-10.8)
[2020-07-14 21:30] LABS: PLATELET ESTIMATE DECREASED
[2020-07-14 21:36] LABS: APTT 29.5 SECONDS (22.8-39.4); INR 1.11 (0.85-1.17); PROTIME 14.3 SECONDS (11.6-15.0)
[2020-07-14 21:49] LABS: BILIRUBIN NEGATIVE (NEGATIVE); GLUCOSE 50 mg/dL (NEGATIVE); KETONE NEGATIVE (NEGATIVE); NITRITE NEGATIVE (NEGATIVE); UROBILINOGEN NORMAL (NORMAL)
[2020-07-14 21:51] LABS: ALBUMIN 2.8 g/dL (3.4-5.0); ALKALINE PHOSPHATASE 142 U/L (30-120); ALT (SGPT) 23 U/L (10-68); BILIRUBIN - TOTAL 0.44 mg/dL (0.2-1.3); CALCIUM 7.1 mg/dL (8.5-10.1); CARBON DIOXIDE 21.2 mmol/L (21.0-32.0); CHLORIDE - SERUM 102 mmol/L (98-107); CKMB 1.6 U/L (0.0-3.6); CREATINE KINASE 88 UL (21-232); MAGNESIUM - SERUM 1.5 mg/dL (1.8-2.4); PROTEIN - SERUM 6.2 g/dL (6.4-8.2); SODIUM 135 mmol/L (136-145); THYROID STIMULATING HORMONE 1.95 uIU/mL (0.36-3.74); UREA NITROGEN 15 mg/dL (7-18)
[2020-07-14 22:00] LABS: CALC OSMOLALITY 274 mosm/kg (275-300); CREATININE - SERUM 0.6 mg/dL (0.6-1.3); GLUCOSE 174 mg/dL (74-106); LIPASE 303 U/L (73-393); eGFR NON AFRICAN AMERICAN > 90 mL/min (90-120)
[2020-07-14 22:01] LABS: POTASSIUM - SERUM 2.5 mmol/L (3.5-5.1); TROPONIN-I < 0.017 ng/mL (0.000-0.060)
[2020-07-14 22:05] LABS: UDS - AMPHET NEGATIVE QUAL (NEGATIVE); UDS - BARB NEGATIVE QUAL (NEGATIVE); UDS - BENZO POSITIVE QUAL (NEGATIVE); UDS - COCAINE NEGATIVE QUAL (NEGATIVE); UDS - OPIATE NEGATIVE QUAL (NEGATIVE); UDS - PCP NEGATIVE QUAL (NEGATIVE); UDS - THC NEGATIVE QUAL (NEGATIVE)
[2020-07-14 22:28] VITALS: BP 154/98
== END 2020-07-14 22:28 | disposition other institution (70) ==
LOC: D.ER 20:36
PROVIDERS: Emergency Medicine
DX: I62.9 Nontraumatic intracranial hemorrhage, unspecified (principal); F10.121 Alcohol abuse with intoxication delirium; Y90.9 Presence of alcohol in blood, level not specified; G93.5 Compression of brain; Z99.11 Dependence on respirator [ventilator] status; I62.00 Nontraumatic subdural hemorrhage, unspecified